=== PATIENT | female | born 1950 | race Caucasian/White ===

== ENCOUNTER 2021-07-02 11:03 | Emergency (ER) | payer MEDICARE, OTHER ==
--- OUTSIDE RECORDS SUMMARY | 2021-07-02 11:08 | XMS REPORT | Continuity of Care Document ---
:1950 Author Organization [facility] t Address [address] [place] [address] Care Team Providers Name Role Phone Whit Attending Clinician Unavailable Problems This patient has no known problems. Allergies, Adverse Reactions, Alerts This patient has no known allergies or adverse reactions. Medications This patient has no known medications. Procedures This patient has no known procedures. Encounters Start End Encounter Admission Attending Care Care Encounter Source Date/Time Date/Time Type Type Clinicians Facility Department ID 2021-04-28 [facility] [id number] [facility] 12:37:24 [facility] [address] [facility] 2021-04-28 Outpatient Whit [facility] [id number] [facility] 12:33:49 Claire [address] [facility] 2021-04-28 Outpatient Whit GERSON [facility] [id number] [facility] 11:48:49 [place] [id number] [facility] 2021-04-12 2021-04-12 ambulatory [facility] [id number] [facility] 2021-02-10 2021-02-10 ambulatory [facility] [id number] [facility] 2021-01-13 2021-01-13 Outpatient [facility] [id number] [facility] 2021-01-05 2021-01-05 [facility] [id number] [facility] 2020-11-30 2020-11-30 [facility] [id number] [facility] 2020-11-30 2020-11-30 [facility] [id number] [facility] 2020-10-30 2020-10-30 [facility] [id number] [facility] 2020-09-08 2020-09-08 [facility] [id number] [facility] 2020-08-05 2020-08-05 Out[facility] [id number] [facility] 2020-07-15 2020-07-15 Out[facility] [id number] [facility] 2020-07-13 2020-07-13 Out[facility] [id number] [facility] 2020-06-24 2020-06-24 Out[facility] [id number] [facility] 2020-06-23 2020-06-23 Out[facility] [id number] [facility] 2020-06-17 2020-06-17 Out[facility] [id number] [facility] 2020-06-10 2020-06-10 Out[facility] [id number] [facility] 2020-06-08 2020-06-08 Outpatient [facility] [id number] [facility]00 [facility] 2019-12-26 2019-12-26 Outpatient [facility] [id number] [facility] Results This patient has no known results.
[2021-07-02 11:38] LABS: Hematocrit 48.7 % (36.0-45.0); Lymphocytes % 26.1 % (15.3-44.8); MPV 9.6 fL (7.6-11.3); RBC Red Blood Cell Count 5.36 M/uL (3.86-4.86)
[2021-07-02 12:07] LABS: ALT/SGPT 195 U/L (12-78); AST/SGOT 119 U/L (15-37); Albumin 3.3 g/dL (3.4-5.0); Alkaline Phosphatase 244 U/L (45-117); BUN Blood Urea Nitrogen 6 mg/dL (7-18); Bicarbonate 31 mmol/L (21-32); Glucose Level 116 mg/dL (74-106); Lipase 368 U/L (73-393); Potassium 3.1 mmol/L (3.5-5.1); Protein, Total 7.1 g/dL (6.4-8.2); Sodium Level 138 mmol/L (136-145)
[2021-07-02 12:16] LABS: Bilirubin Total 8.6 mg/dL (0.2-1.0)
--- NOTE | 2021-07-02 14:29 | EDPHYS ---
Physician Documentation [facility] Name: Maci Farah Age: 71 yrs Sex: Female : 1950 Arrival Date: 07/02/2021 Time: 11:04 Bed 2 Private MD: YARA KIM ED Physician Aftab Rasheed HPI: 07/02 11:35 This 71 yrs old Female presents to ER via EMS with complaints of abnormal lab values, rn yellow skin. 11:35 EMS reports toned out for abnormal lab values, family told liver and kidneys didn't rn look good. Patient states feels fine. No acute complaints. Doesn't drink ETOH. denies taking too much tylenol or ibuprofen. No new supplements. No abd pain. No weight loss. Patient states only noticed yellowing of her skin today. . Onset: The symptoms/episode began/occurred at an unknown time. Severity of symptoms: At their worst the symptoms were moderate in the emergency department the symptoms are unchanged. The patient has not experienced similar symptoms in the past. The patient has been recently seen by a physician:. Historical: - Allergies: 11:13 PENICILLINS; jl7 - Home Meds: 11:13 None [Active]; jl7 - PMHx: 11:13 lymphedema; Hereditary Inclusion Body Myopathy (HIBM); jl7 - Immunization history:: Adult Immunizations unknown. - Social history:: Smoking status: Patient denies any tobacco usage or history of. - Family history:: not pertinent. - Hospitalizations: : No recent hospitalization is reported. ROS: 11:35 Constitutional: Negative for fever, chills, and weight loss, Eyes: Negative for injury, rn pain, redness, and discharge, Neck: Negative for injury, pain, and swelling, Cardiovascular: Negative for chest pain, palpitations, and edema, Respiratory: Negative for shortness of breath, cough, wheezing, and pleuritic chest pain, Abdomen/GI: Negative for abdominal pain, nausea, vomiting, diarrhea, and constipation, Back: Negative for injury and pain, : Negative for injury, bleeding, discharge, and swelling, MS/Extremity: Negative for injury and deformity, Skin: + yellowing of skin Neuro: Negative for headache, weakness, numbness, tingling, and seizure. Exam: 11:35 Constitutional: This is a well developed, well nourished patient who is awake, alert, rn and in no acute distress. Head/Face: Normocephalic, atraumatic. Eyes: + scleral icterus ENT: MMM Cardiovascular: Regular rate and rhythm. No pulse deficits. Respiratory: No increased work of breathing, no retractions or nasal flaring. Abdomen/GI: soft, non-tender Skin: + jaundice of face and torso MS/ Extremity: Pulses equal, no cyanosis. Neurovascular intact. Full, normal range of motion. Equal circumference. Neuro: Awake and alert, GCS 15, oriented to person, place, and situation. Cranial nerves II-XII grossly intact. Motor strength 5/5 in all extremities. Sensory grossly intact. Vital Signs: 11:10 BP 123 / 76; Pulse 77; Resp 15; Temp 97.8; Pulse Ox 92% ; Weight 77.11 kg; Pain 0/10; jl7 12:30 BP 100 / 68; Pulse 79; Resp 17; Pulse Ox 98% ; jl7 13:37 BP 90 / 54; Pulse 76; Resp 15; Pulse Ox 98% ; jl7 15:22 BP 117 / 68; Pulse 72; Resp 15; Pulse Ox 99% ; Pain 0/10; jl7 19:44 BP 111 / 65; Pulse 82; Resp 19; Pulse Ox 98% on R/A; jb4 21:09 BP 107 / 53; Pulse 78; Resp 20 S; Pulse Ox 98% on R/A; as6 MDM: 11:09 Patient medically screened. rn 14:27 Differential Diagnosis jaundice, liver failure, pancreatic mass, CBD problem. Data rn reviewed: vital signs, nurses notes, lab test result(s), radiologic studies, CT scan, and as a result, I will admit patient. Counseling: I had a detailed discussion with the patient and/or guardian regarding: the historical points, exam findings, and any diagnostic results supporting the discharge/admit diagnosis, lab results, radiology results, the need for further work-up and treatment in the hospital, the need to transfer to another facility, for higher level of care, [facility] does not immediately have the required specialist. 16:49 ED course: [facility] still has not called back regarding transfer.. rn 07/02 11:10 Order name: CBC with Diff; Complete Time: 12:16 rn 07/02 11:10 Order name: CMP; Complete Time: 13:39 rn 07/02 11:10 Order name: Lipase; Complete Time: 13:39 rn 07/02 11:10 Order name: Hepatitis Panel rn 07/02 11:10 Order name: Tylenol Level; Complete Time: 13:39 rn 07/02 11:10 Order name: AMMONIA; Complete Time: 12:16 rn 07/02 11:10 Order name: IV Start; Complete Time: 11:15 rn 07/02 11:10 Order name: CT Abd/Pelvis - IV Contrast Only rn 07/02 11:10 Order name: Labs collected and sent; Complete Time: 11:15 rn 07/02 11:10 Order name: Cardiac monitoring; Complete Time: 11:15 rn 07/02 11:10 Order name: O2 Sat Monitoring; Complete Time: 11:15 rn 07/02 11:17 Order name: PT-INR; Complete Time: 15:29 rn 07/02 14:08 Order name: SARS-COV-2 RT PCR (Document "Date of Onset" if Symptomatic); Complete Time: 16:49 Administered Medications: 14:37 Drug: NS 0.9% 500 ml Route: IV; Rate: bolus; Site: left antecubital; 6 15:15 Follow up: Response: No adverse reaction; IV Status: Completed infusion; IV Intake: jl7 500ml 21:11 Follow up: Response: No adverse reaction; IV Status: Completed infusion; IV Intake: as6 500ml Disposition Summary: 07/02/21 14:28 Transfer Ordered Transfer Location: [facility] rn Reason: Higher level of care rn Condition: Stable rn Problem: new rn Symptoms: are unchanged rn Accepting Physician: (07/02/21 21:13) as6 Diagnosis - Unspecified jaundice rn - Disorders of gallbladder, biliary tract and pancreas in diseases classified rn elsewhere Forms: - Medication Reconciliation Form rn - SBAR form rn Signatures: Dispatcher [employer] Casie Cruz FNP-C FNP-Aftab Whyte MD MD rn Leal, Jahala, RN RN jl7 Alex Raphael, RN RN as6 Danna Carrillo RN RN jh6 Corrections: (The following items were deleted from the chart) 21:13 14:28 Dr. rn as6
--- NOTE | 2021-07-02 14:29 | ER ---
Nurse's Notes [facility] Name: Maci Farah Age: 71 yrs Sex: Female : 1950 Arrival Date: 07/02/2021 Time: 11:04 Bed 2 Private MD: YARA KIM Diagnosis: Unspecified jaundice;Disorders of gallbladder, biliary tract and pancreas in diseases classified elsewhere Presentation: 07/02 11:10 Chief complaint: EMS states: Toned out by family for abnormal lab values, reporting LFT jl7 values are abnormal and it's new onset, pt is A\T\Ox3, slow to answer. Coronavirus screen: At this time, the client does not indicate any symptoms associated with coronavirus-19. Ebola Screen: No symptoms or risks identified at this time. Initial Sepsis Screen: Does the patient meet any 2 criteria? No. Patient's initial sepsis screen is negative. Does the patient have a suspected source of infection? No. Patient's initial sepsis screen is negative. Risk Assessment: Do you want to hurt yourself or someone else? Patient reports no desire to harm self or others. Onset of symptoms is unknown. Care prior to arrival: None. 11:10 Method Of Arrival: EMS: [facility] jl7 11:10 Acuity: AMANDO 3 jl7 Triage Assessment: 11:13 General: Appears in no apparent distress. uncomfortable, Behavior is calm, cooperative, jl7 appropriate for age. Pain: Denies pain. Neuro: Level of Consciousness is awake, alert, obeys commands, Oriented to person, place, time. Cardiovascular: Patient's skin is warm and dry. Respiratory: Airway is patent Respiratory effort is even, unlabored, Respiratory pattern is regular, symmetrical. Derm: Skin is jaundiced. Historical: - Allergies: 11:13 PENICILLINS; jl7 - Home Meds: 11:13 None [Active]; jl7 - PMHx: 11:13 lymphedema; Hereditary Inclusion Body Myopathy (HIBM); jl7 - Immunization history:: Adult Immunizations unknown. - Social history:: Smoking status: Patient denies any tobacco usage or history of. - Family history:: not pertinent. - Hospitalizations: : No recent hospitalization is reported. Screenin:30 Abuse screen: Denies threats or abuse. Denies injuries from another. Nutritional jl7 screening: No deficits noted. Tuberculosis screening: No symptoms or risk factors identified. Fall Risk IV access (20 points). Assessment: 11:30 General: See triage assessment. jl7 12:30 Reassessment: Patient appears in no apparent distress at this time. No changes from jl7 previously documented assessment. Patient and/or family updated on plan of care and expected duration. Pain level reassessed. Patient is alert, oriented x 3, equal unlabored respirations, skin warm/dry/pink. 13:39 Reassessment: Patient appears in no apparent distress at this time. No changes from jl7 previously documented assessment. Patient and/or family updated on plan of care and expected duration. Pain level reassessed. Patient is alert, oriented x 3, equal unlabored respirations, skin warm/dry/pink. 13:44 Reassessment: Dr. Rasheed at bedside updating pt and family. jl7 19:44 Reassessment: Patient appears in no apparent distress at this time. Patient and/or jb4 family updated on plan of care and expected duration. Pain level reassessed. Patient is alert, oriented x 3, equal unlabored respirations, skin warm/dry/pink. 20:04 Reassessment: Report called to receiving facility. jb4 Vital Signs: 11:10 BP 123 / 76; Pulse 77; Resp 15; Temp 97.8; Pulse Ox 92% ; Weight 77.11 kg; Pain 0/10; jl7 12:30 BP 100 / 68; Pulse 79; Resp 17; Pulse Ox 98% ; jl7 13:37 BP 90 / 54; Pulse 76; Resp 15; Pulse Ox 98% ; jl7 15:22 BP 117 / 68; Pulse 72; Resp 15; Pulse Ox 99% ; Pain 0/10; jl7 19:44 BP 111 / 65; Pulse 82; Resp 19; Pulse Ox 98% on R/A; jb4 21:09 BP 107 / 53; Pulse 78; Resp 20 S; Pulse Ox 98% on R/A; as6 ED Course: 11:04 Patient arrived in ED. am2 11:06 Danna Carrillo, RN is Primary Nurse. jh6 11:06 Inserted saline lock: 22 gauge in left antecubital area, using aseptic technique. Blood 6 collected. 11:09 Aftab Rasheed MD is Attending Physician. rn 11:10 Initial lab(s) drawn, by ED staff, sent to lab. jl7 11:13 Triage completed. jl7 11:13 Arm band placed on right wrist. jl7 11:15 CMP Sent. jh6 11:26 YARA KIM is Private Physician. am2 11:30 Patient has correct armband on for positive identification. Placed in gown. Bed in low jl7 position. Call light in reach. Side rails up X2. youth nutritional monitor on. Pulse ox on. NIBP on. Warm blanket given. 12:39 CT Abd/Pelvis - IV Contrast Only In Process Unspecified. EDMS 21:10 No provider procedures requiring assistance completed. Patient transferred, IV remains as6 in place. Administered Medications: 14:37 Drug: NS 0.9% 500 ml Route: IV; Rate: bolus; Site: left antecubital; jh6 15:15 Follow up: Response: No adverse reaction; IV Status: Completed infusion; IV Intake: jl7 500ml 21:11 Follow up: Response: No adverse reaction; IV Status: Completed infusion; IV Intake: as6 500ml Intake: 15:15 IV: 500ml; Total: 500ml. jl7 21:11 IV: 500ml; Total: 1000ml. as6 Outcome: 14:28 ER care complete, transfer ordered by . rn 21:10 Transferred by ground EMS to [facility], Transfer form completed. as6 X-rays sent w/ patient. 21:10 Condition: stable 21:10 Instructed on the need for transfer. 21:13 Patient left the ED. as6 Signatures: Dispatcher [employer] EDMS Aftab Rasheed MD MD rn Bryson, James, RN RN jb4 Babita Meza RN RN jl7 Maria L Norman Ashby RN RN as6 Danna Carrillo RN RN jh6
[2021-07-02] MEDS ORDERED: NA CHLORIDE 0.9% 500 ML ONE (14:32)
[2021-07-02 14:36] LABS: Protime INR 1.21
--- NOTE | 2021-07-02 22:25 | RAD REPORT ---
EXAM DESCRIPTION: CT - Abdomen Pelvis W Contrast - 07/02/2021 3:24 pm CLINICAL HISTORY: Abdominal pain/jaundice COMPARISON: none. TECHNIQUE: Computed axial tomography of the abdomen pelvis was obtained. 100 cc Isovue-300 was admin istered intravenously. Oral contrast was not requested which limits evaluation of bowel. All CT scans are performed using dose optimization technique as appropriate and may include automated exposure control or mA/KV adjustment according to patient size. FINDINGS: Cholelithiasis. Gallbladder distention. Mild dilatation of the intrahepatic biliary tree. Marked dilatation of the common bile duct. Dilatation of the pancreatic duct. Mild inhomogeneity panc reatic head. 14 millimeter calculus right renal pelvis without hydronephrosis. Left renal cysts. There is no evidence of diverticulitis. Marked osteoarthritis right hip. Left lower lobe atelectasis A preliminary report was given after completion of the exam. This dictation is delayed due to technic al issues with pacs/fluency IMPRESSION: Gallbladder distention. Marked dilatation of the common bile duct. Dilatation of the bob creatic duct. There is mild inhomogeneity of the pancreatic head which may be secondary to a mass. An other consideration is that the patient has a stone within the distal common bile duct. Cholelithiasis 14 millimeter calculus right renal pelvis
[2021-07-02 22:39] VITALS: TEMP 97.8
[2021-07-02 22:43] VITALS: O2SAT 98
[2021-07-02 22:44] VITALS: BP 107/53
[2021-07-06 19:02] LABS: HBsAG Nonreactive (Nonreactive)
== END 2021-07-02 21:13 | disposition short-term general hospital (02) ==
LOC: ER 11:03
DX: R17 Unspecified jaundice (principal); K82.9 Disease of gallbladder, unspecified; K83.8 Other specified diseases of biliary tract; K86.9 Disease of pancreas, unspecified; Z88.0 Allergy status to penicillin; Z20.822 Contact with and (suspected) exposure to COVID-19
CPT/HCPCS: 85025; 36415; 82140; 80329; 85610; 83690; 80053; 80074; 74177; 96360; 99285; U0003; Q9967; J7040